=== PATIENT | female | born 1930 | race Caucasian/White ===

== ENCOUNTER 2016-04-24 11:17 | Emergency (ER) | payer MEDICARE, BC ==
[2016-04-24 12:23] LABS: CHLORIDE,CL 102 mmol/L (98-107); SODIUM,NA 139 mmol/L (136-145)
[2016-04-24] MEDS ORDERED: Sodium Chloride 0.9% 1,000 ML IV ONE (12:49)
--- NOTE | 2016-04-24 13:02 | EDM.PDOC ---
ED HPI NEURO - General Chief Complaint: Neuro Symptoms/Deficits Stated Complaint: Right sided facial droop, leg "heaviness", dysarthria Time Seen by Provider: 04/24/16 11:17 Source of Information: Reports: Patient, EMS History Limitations: Reports: No limitations - History of Present Illness INITIAL COMMENTS - FREE TEXT/NARRATIVE: Pt. last well at approx. 10:00 this AM. Had been ambulatory and awake since 0700. Had used the bathroom and eaten, and was sitting in an easy chair. noticed abnormal speech pattern at 10:00 AM. At that time, pt. was also experiencing bilateral lower extremity weakness. Symptom Onset Date: 04/24/16 Symptom Onset Time: 10:00 Timing/Duration: Reports: Hour(s):, Sudden onset Location (Neuro Complaint): Reports: face, lower extremity, left, lower extremity, right, other Quality (Neuro Complaint): Reports: numbness, other Severity: mild Improves with: Reports: Other Worsens with: Reports: None Associated Symptoms: Reports: no other symptoms - Related Data Allergies/ADRs: Allergies Allergy/AdvReac Type Severity Reaction Status Date / Time No Known Allergies Allergy Verified 04/24/16 11:57 Home Meds: Home Meds Allopurinol [Allopurinol] 100 mg PO BID 04/24/16 [History] Aspirin 81 mg PO BRK 04/24/16 [History] Carvedilol [Carvedilol] 37.5 mg PO BID 04/24/16 [History] Ferrous Sulfate [Iron] 325 mg PO DAILY 04/24/16 [History] Furosemide [Furosemide] 20 mg PO DAILY 04/24/16 [History] Hydrochlorothiazide 25 mg PO DAILY 04/24/16 [History] Insulin Aspart [NovoLOG] 1 unit SQ ASDIRECTED 04/24/16 [History] Insulin Glarg,Human.Rec.Analog [Lantus] 30 units SQ DAILY 04/24/16 [History] Levothyroxine [Synthroid] 100 mcg PO ACBREAKFAST 04/24/16 [History] Lisinopril 10 mg PO DAILY 04/24/16 [History] Pantoprazole [Protonix] 40 mg PO ACBREAKFAST 04/24/16 [History] Tolterodine Tartrate [Tolterodine Tartrate ER] 4 mg PO DAILY 04/24/16 [History] amLODIPine Besylate [Amlodipine Besylate] 10 mg PO DAILY 04/24/16 [History] atorvaSTATin [Lipitor] 40 mg PO BEDTIME 04/24/16 [History] cloNIDine [Catapres] 0.1 mg PO Q12HR 04/24/16 [History] levETIRAcetam [Levetiracetam] 750 mg PO BID 04/24/16 [History] Past Medical History Cardiovascular History: Reports: High cholesterol, Hypertension Neurological History: Reports: CVA Endocrine/Metabolic History: Reports: Diabetes, type II, Hypothyroidism Social & Family History - Family History Family Medical History: Noncontributory ED ROS GENERAL - Review of Systems Review Of Systems: See Below Constitutional: Reports: no symptoms HEENT: Reports: No symptoms, Other (Right sided facial droop) Respiratory: Reports: No Symptoms Cardiovascular: Reports: No symptoms Endocrine: Reports: no symptoms GI/Abdominal: Reports: No symptoms : Reports: no symptoms Musculoskeletal: Reports: no symptoms Skin: Reports: no symptoms Neurological: Reports: Paresthesia, Pre-Existing Deficit, Change in Speech, Other (Mild dysarthria) Psychiatric: Reports: No symptoms Hematologic/Lymphatic: Reports: no symptoms Immunologic: Reports: no symptoms ED EXAM, NEURO - Physical Exam Exam: See Below Exam Limited By: No limitations General Appearance: alert, WD/WN, no apparent distress Eye Exam: bilateral eye: EOMI, normal fundi, normal inspection, PERRL Ears: normal external exam, normal canal, hearing grossly normal, normal TMs Nose: normal inspection, normal mucosa Throat/Mouth: Normal inspection, Normal lips, Normal teeth, Normal gums, Normal oropharynx, Normal voice, No airway compromise Head Exam: atraumatic, normocephalic Neck: normal inspection, supple, non-tender, full range of motion Respiratory/Chest: no respiratory distress, lungs clear, normal breath sounds, no accessory muscle use, chest non-tender Cardiovascular: normal peripheral pulses, regular rate, rhythm, no edema GI/Abdominal: normal bowel sounds, soft, non tender, no organomegaly, no distention (Female) Exam: Deferred Rectal (Female) Exam: Deferred Neurological: alert, normal mood/affect, normal dorsiflexion, CN II-XII intact, normal plantar flexion, normal reflexes, no motor/sensory deficits, oriented x 3 , abnormal motor (right sided facial droop) DTR: 2+: bicep (R), bicep (L), tricep (R), tricep (L), patella (R), patella (L) , achilles (R), achilles (L) Back Exam: normal inspection, full range of motion Extremities: normal inspection, normal range of motion, normal capillary refill Psychiatric: normal affect, normal mood Skin Exam: Warm, Dry, Intact, Normal color, No rash EKG INTERPRETATION EKG Date: 04/24/16 Time: 11:45 Rhythm: NSR Harrington: normal P-wave: present QRS: normal ST-T: normal QT: normal Comparison: NA - no prior EKG Course - Vital Signs Text/Narrative:: NIH stroke scale performed. Total score was 2 (1 point for dysarthria, one for facial droop). Conferred with Dr. Ayala ([place] [facility]), patient and family. Consensus not to proceed with [employer]. Relative contraindications exist for prior CVA with diabetes, age over 85, and resolving symptoms. Pt. was started on NS at 125ml/hr due to acute kidney injury. Pt. experienced no worsening of her symptoms during stay in ER. - Orders/Labs/Meds Orders: Active Orders 24 hr Category Date Time Status EKG 12 Lead [EKG Documentation Completion] [RC] STAT Care 04/24/16 12:48 Active Head wo Cont [CT] Routine Exams 04/24/16 11:29 Taken Sodium Chloride 0.9% [Normal Saline] 1,000 ml Med 04/24/16 12:49 Ordered IV .BOLUS Medication Orders Sodium Chloride (Normal Saline) 1,000 mls @ 125 mls/hr IV .BOLUS ONE Stop: 04/24/16 20:48 Last Admin: 04/24/16 13:00 Dose: 125 mls/hr Labs: Laboratory Tests 04/24/16 04/24/16 04/24/16 Range/Units 11:47 11:47 11:47 WBC 8.7 (4.0-10.0) x10^3/uL RBC 3.80 L (4.00-5.50) x10^6/uL Hgb 10.6 L (12.0-16.0) g/dL Hct 32.5 L (33.0-47.0) % MCV 85.5 (78.0-93.0) fL MCH 27.9 (26.0-32.0) pg MCHC 32.6 (32.0-36.0) g/dL RDW Coeff of Shruthi 14.9 (10.0-15.0) % Plt Count 162 (130-400) x10^3/uL Neut % (Auto) 80.3 H (50.0-80.0) % Lymph % (Auto) 10.9 L (25.0-50.0) % Gove % (Auto) 6.5 (2.0-11.0) % Eos % (Auto) 2.1 (0.0-4.0) % Baso % (Auto) 0.2 (0.2-1.2) % PT 9.9 L (10.0-12.8) SEC INR 0.9 L (2.0-3.5) APTT 21.7 L (24.0-36.0) SEC Sodium 139 (136-145) mmol/L Potassium 4.7 (3.5-5.1) mmol/L Chloride 102 (98-107) mmol/L Carbon Dioxide 28 (21-32) mmol/L BUN 77 H* (7-18) mg/dL Creatinine 2.0 H (0.55-1.02) mg/dL Est Cr Clr Drug Dosing TNP Estimated GFR (MDRD) 24 Glucose 242 H (74-106) mg/dL Calcium 8.7 (8.5-10.1) mg/dL Creatine Kinase 52 (26-192) U/L Creatine Kinase Index 1.3 (0.0-4.0) % CK-MB (CK-2) 0.7 (0.0-3.6) ng/mL POC Troponin I (0.00-0.08) ng/mL 04/24/16 Range/Units 11:52 WBC (4.0-10.0) x10^3/uL RBC (4.00-5.50) x10^6/uL Hgb (12.0-16.0) g/dL Hct (33.0-47.0) % MCV (78.0-93.0) fL MCH (26.0-32.0) pg MCHC (32.0-36.0) g/dL RDW Coeff of Shruthi (10.0-15.0) % Plt Count (130-400) x10^3/uL Neut % (Auto) (50.0-80.0) % Lymph % (Auto) (25.0-50.0) % Gove % (Auto) (2.0-11.0) % Eos % (Auto) (0.0-4.0) % Baso % (Auto) (0.2-1.2) % PT (10.0-12.8) SEC INR (2.0-3.5) APTT (24.0-36.0) SEC Sodium (136-145) mmol/L Potassium (3.5-5.1) mmol/L Chloride (98-107) mmol/L Carbon Dioxide (21-32) mmol/L BUN (7-18) mg/dL Creatinine (0.55-1.02) mg/dL Est Cr Clr Drug Dosing Estimated GFR (MDRD) Glucose (74-106) mg/dL Calcium (8.5-10.1) mg/dL Creatine Kinase (26-192) U/L Creatine Kinase Index (0.0-4.0) % CK-MB (CK-2) (0.0-3.6) ng/mL POC Troponin I 0.02 (0.00-0.08) ng/mL Meds: Medications Generic Name Dose Route Start Last Admin Trade Name Freq PRN Reason Stop Dose Admin Sodium Chloride 1,000 mls @ 125 mls/hr 04/24/16 12:49 04/24/16 13:00 Normal Saline IV 04/24/16 20:48 125 mls/hr .BOLUS ONE Administration - Radiology Interpretation Free Text/Narrative:: No acute signs of CVA. CT Results Date: 04/24/16 Departure - Departure Time of Disposition: 13:15 Disposition: DC/Tfer to Acute Hospital 02 Condition: fair Clinical Impression: Acute kidney injury Referrals: PCP,Not In Area [Primary Care Provider] - Forms: Interfacility Transfer EMTALA - Problem List & Annotations (1) Acute kidney injury SNOMED Code(s): 37650855 Code(s): N17.9 - ACUTE KIDNEY FAILURE, UNSPECIFIED Status: Acute Current Visit: Yes (2) TIA (transient ischemic attack) SNOMED Code(s): 793360436, 416882763 Code(s): G45.9 - TRANSIENT CEREBRAL ISCHEMIC ATTACK, UNSPECIFIED Status: Acute Current Visit: Yes Onset Date: ~04/24/16 Qualifiers: Transient cerebral ischemia type: unspecified Qualified Code(s): G45.9 - Transient cerebral ischemic attack, unspecified - Problem List Review Problem List Initiated/Reviewed/Updated: Yes - My Orders Last 24 Hours: My Active Orders 04/24/16 11:29 Head wo Cont [CT] Routine 04/24/16 12:48 EKG 12 Lead [EKG Documentation Completion] [RC] STAT 04/24/16 12:49 Sodium Chloride 0.9% [Normal Saline] 1,000 ml IV .BOLUS - Assessment/Plan Last 24 Hours: My Active Orders 04/24/16 11:29 Head wo Cont [CT] Routine 04/24/16 12:48 EKG 12 Lead [EKG Documentation Completion] [RC] STAT 04/24/16 12:49 Sodium Chloride 0.9% [Normal Saline] 1,000 ml IV .BOLUS Assessment:: TIA Acute kidney injury Plan: Transfer to [facility]. Accepting physician Dr. Barroso. Transport via [facility] [place] ground ambulance.
== END 2016-04-24 13:45 | disposition short-term general hospital (02) ==
LOC: VM.ED 11:17
DX: N17.9 Acute kidney failure, unspecified (principal); E78.00 Pure hypercholesterolemia, unspecified; I10 Essential (primary) hypertension; E03.9 Hypothyroidism, unspecified; E11.9 Type 2 diabetes mellitus without complications; Z79.899 Other long term (current) drug therapy; R29.810 Facial weakness
CPT/HCPCS: 36415; 70450; 80048; 82550; 82553; 84484; 85025; 85610; 85730; 93005; 96360; 99285; J7030